=== PATIENT | male | born 1975 | race Caucasian/White ===

== ENCOUNTER 2017-04-14 13:05 | Emergency (ER) | payer SELFPAY ==
[~2017-04-14] VITALS: Ht 190.5 cm; Wt 80.0 kg
[2017-04-14 13:12] VITALS: TEMP 37.1; Ht 190.5 cm; Wt 80.0 kg
--- NOTE | 2017-04-14 13:33 | EMERGENCY ROOM VISIT NOTE ---
History Report prepared by Inesibe: Janneth Brock Under the Supervision of: Dr. Gabriel Hampton M.D. First contact with patient: 13:24 Chief Complaint: CHEST PAIN Stated Complaint: DIZZINESS, CHEST PAIN, BACK PAIN, CANT BREATH Nursing Triage Summary: Pt c/o left sided CP, palpitations, feeling his heartbeat in his throat, excessive tiredness, dizziness, numbness in chin and tongue, & shortness of breath with exertion. Pt verbalizes he was seen for this 1 month ago and was told he has anxiety and vertigo. Medications have not helped, pt says "symptoms are getting worse. Pt verbalizes he had a cardiac cath a few years ago for similar episode and was told everything was normal, dx with GERD. History of Present Illness The patient is a 42 year old male who presents to the Emergency Room with complaints of intermittent left sided chest pain. He also complains of palpitations, fatigue, dizziness, numbness in his chin and tongue and shortness of breath with exertion. He reports he was worked up for similar symptoms approximately 1 month ago but nothing abnormal was found. He was given Ativan for anxiety, but states it does not help. Since, then he reports his dizziness and other symptoms have been worsening. The patient admits he does not have a primary care provider. He denies drinking alcohol or any history of liver problems. He has not experienced any leg swelling, diarrhea, rashes or urinary symptoms. He denies any personal or family history of blood clots. He states he underwent a cardiac catheterization a few years ago and was told it was normal. The patient is a current smoker and admits he has been smoking "for a long time ". He has never undergone surgery on his chest or abdomen. 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 A total of 10 systems reviewed and were otherwise negative. Past Medical & Surgical Medical Problems: (1) Anxiety (2) GERD (gastroesophageal reflux disease) Social History Smoking Status: Current Every Day Smoker Alcohol Use: none Drug Use: none Marital Status: Housing Status: lives with family Occupation Status: unemployed Current/Historical Medications Scheduled Doxycycline Hyclate (Vibramycin), 100 MG PO BID Prednisone (Prednisone), 0 PO DAILY Allergies Coded Allergies: No Known Allergies (Unverified , 04/14/17) Physical Exam Vital Signs Date Time Temp Pulse Resp B/P (MAP) Pulse Ox O2 Delivery O2 Flow Rate FiO2 04/14/17 14:39 71 20 121/75 95 Room Air 04/14/17 13:12 96 Room Air 04/14/17 13:12 37.1 83 18 128/77 95 Room Air Physical Exam GENERAL: Patient is anxious appearing and in no acute distress. HEENT: No acute trauma, normocephalic atraumatic, mucous membranes moist, no nasal congestion, no scleral icterus. NECK: No stridor, no adenopathy, no meningismus, trachea is midline. LUNGS: No dyspnea. Clear to auscultation and equal bilaterally. No wheeze, no rhonchi. HEART: Regular rate and rhythm. No murmurs, rubs, gallops appreciated. ABDOMEN: Soft, nontender, bowel sounds positive, no masses appreciated, no peritonitis. BACK: No midline tenderness, no CVA tenderness EXTREMITIES: Normal motion all extremities, no cyanosis, no edema. NEUROLOGIC: Alert and oriented, no acute motor or sensory deficits, no focal weakness, cranial nerves grossly intact. SKIN: Skin is heavily tattooed. No rash, no jaundice, no diaphoresis. Medical Decision & Procedures ER Provider Diagnostic Interpretation: Radiology results and stated below per my review and radiologist interpretation: CHEST ONE VIEW PORTABLE HISTORY: 42 years-old Male left chest pain x 1 month acute left-sided atypical chest pain COMPARISON: None available TECHNIQUE: Portable AP view of the chest FINDINGS: The cardiomediastinal and hilar silhouettes are within normal limits. Atherosclerosis of the aorta. There is no pneumothorax, pleural effusion, focal airspace consolidation or overt pulmonary edema. Scattered nodular opacities measuring up to 5 mm suggests calcified granulomas. Correlate with any prior imaging. Bones of the chest appear grossly intact. Bones of the chest appear grossly intact. IMPRESSION: No acute process of the chest. The above report was generated using voice recognition software. It may contain grammatical, syntax or spelling errors. Electronically signed by: Hilton Paniagua M.D. 04/14/2017 2:01 PM Laboratory Results 04/14/17 13:40 Red Blood Count 5.66, Mean Corpuscular Volume 91.9, Mean Corpuscular Hemoglobin 32.2, Mean Corpuscular Hemoglobin Concent 35.0, Mean Platelet Volume 11.0, Neutrophils (%) (Auto) 71.8, Lymphocytes (%) (Auto) 18.3, Monocytes (%) (Auto) 6.7, Eosinophils (%) (Auto) 2.6, Basophils (%) (Auto) 0.3, Neutrophils # (Auto) 8.16, Lymphocytes # (Auto) 2.07, Monocytes # (Auto) 0.76, Eosinophils # (Auto) 0.29, Basophils # (Auto) 0.03 04/14/17 13:40 Test 04/14/17 13:40 White Blood Count 11.34 K/uL (4.8-10.8) Red Blood Count 5.66 M/uL (4.7-6.1) Hemoglobin 18.2 g/dL (14.0-18.0) Hematocrit 52.0 % (42-52) Mean Corpuscular Volume 91.9 fL (80-100) Mean Corpuscular Hemoglobin 32.2 pg (25-34) Mean Corpuscular Hemoglobin Concent 35.0 g/dl (32-36) Platelet Count 229 K/uL (130-400) Mean Platelet Volume 11.0 fL (7.4-10.4) Neutrophils (%) (Auto) 71.8 % Lymphocytes (%) (Auto) 18.3 % Monocytes (%) (Auto) 6.7 % Eosinophils (%) (Auto) 2.6 % Basophils (%) (Auto) 0.3 % Neutrophils # (Auto) 8.16 K/uL (1.4-6.5) Lymphocytes # (Auto) 2.07 K/uL (1.2-3.4) Monocytes # (Auto) 0.76 K/uL (0.11-0.59) Eosinophils # (Auto) 0.29 K/uL (0-0.5) Basophils # (Auto) 0.03 K/uL (0-0.2) RDW Standard Deviation 42.8 fL (36.4-46.3) RDW Coefficient of Variation 12.8 % (11.5-14.5) Immature Granulocyte % (Auto) 0.3 % Immature Granulocyte # (Auto) 0.03 K/uL (0.00-0.02) D-Dimer 190 ug/L FEU (0-500) Anion Gap 4.0 mmol/L (3-11) Est Creatinine Clear Calc Drug Dose 113.5 ml/min Estimated GFR () 113.8 Estimated GFR (Non- 98.2 BUN/Creatinine Ratio 15.3 (10-20) Calcium Level 8.9 mg/dl (8.5-10.1) Troponin I < 0.015 ng/ml (0-0.045) C-Reactive Protein < 0.29 mg/dl (0-0.29) Thyroid Stimulating Hormone (TSH) 2.790 uIu/ml (0.300-4.500) Laboratory results as reviewed by me. Medications Administered Medications (Trade) Dose Ordered Sig/Yudy Route Start Time Stop Time Status Last Admin Dose Admin Prednisone (PredniSONE TAB) 60 mg NOW STAT PO 04/14/17 14:53 04/14/17 14:54 DC 04/14/17 15:03 60 MG ECG Indication: chest pain Rate (beats per minute): 77 Rhythm: normal sinus Findings: no acute ischemic change, no ectopy ED Course 1325: The patient was evaluated in room B11. A complete history and physical exam was performed. 1445: I reevaluated the patient. We discussed at length his findings being normal and his extensive previous workups. We discussed no clear indication for antibiotics or other medications. Through informed decision making, we will try Prednisone first. He also requests a prescription for Doxycycline in case he decides to get that filled. 1453: Prednisone 60 mg PO. Medical Decision 42 yr old male with wide variety of complaints which have been ongoing for the last 1+ month. Already extensive work up for this including MRIs, CTs, echos, and admission to OSH. No specific cause thus yet identified. Symptoms are not classical for ACS and with unremarkable EKG, neg Trop I do not feel this is ACS. CXR unremarkable. Dimer negative and without PE risk factors I feel CT not indicated. Symptoms not consistent with dissection. He has no neuro deficits on exam, already had neg MRI brain and thus I do not feel repeat MRI indicated. He does have variety of muscle/joint aches/pains but with neg CRP seems unlikely inflammatory, as well as already having negative lyme previously. That said this is now ongoing for the last month without any improvement and patient is to point where he wants to try anything. Thus after shared decision making he wishes to try prednisone round (stressed increase Omeprazole to BID x 1 wk), and will give Rx Doxy in case atypical lyme, etc infection though I noted to him I think it has low chance of making better, may be expensive, etc. I made it clear it is very important for him to set up PCP to hep figure this out. We did discuss the possibility this is anxiety issues, especially given erick-oral tingling when symptoms are worse. I made it clear he may return at any time if worsening or other concerns. Medication Reconcilliation Current Medication List: was personally reviewed by me Blood Pressure Screening Patient's blood pressure: Normal blood pressure Blood pressure disposition: Did not require urgent referral Impression Primary Impression: Left sided chest pain Additional Impressions: Polymyalgia Tingling of face Scribe Attestation The scribe's documentation has been prepared under my direction and personally reviewed by me in its entirety. I confirm that the note above accurately reflects all work, treatment, procedures, and medical decision making performed by me. Departure Information Dispostion Home / Self-Care Prescriptions Doxycycline Hyclate (VIBRAMYCIN) 100 Mg Cap 100 MG PO BID for 14 Days, #28 CAP Prov: Gabriel Hampton M.D. 04/14/17 Prednisone (Prednisone) 20 Mg Tab 0 PO DAILY, #18 TAB 3 DAILY FOR 3 DAYS, THEN 2 DAILY FOR 3 DAYS, THEN 1 DAILY FOR 3 DAYS. Prov: Gabriel Hampton M.D. 04/14/17 Patient Instructions My [facility] Additional Instructions You have been examined and treated today on an emergency basis only. This is not a substitute for, or an effort to provide, complete comprehensive medical care. It is impossible to recognize and treat all injuries or illnesses in a single emergency department visit. It is therefore important that you follow up closely with your Primary Physician. Call as soon as possible for an appointment so you can review all labs, imaging and other testing that you had. Return to Emergency Department, call 911 or seek immediate medical attention if you feel your symptoms are worsening. Problem Qualifiers
[2017-04-14 13:50] LABS: BASO % 0.3 %; BASO ABS # 0.03 K/uL (0-0.2); EOS % 2.6 %; EOS ABS # 0.29 K/uL (0-0.5); HEMOGLOBIN 18.2 g/dL (14.0-18.0); IG# 0.03 K/uL (0.00-0.02); LYMPH % 18.3 %; LYMPH ABS # 2.07 K/uL (1.2-3.4); MEAN CELL VOLUME 91.9 fL (80-100); MEAN CORPUSCULAR HEMOGLOBIN 32.2 pg (25-34); MONO % 6.7 %; MONO ABS # 0.76 K/uL (0.11-0.59); NEUT % 71.8 %; NEUT ABS # 8.16 K/uL (1.4-6.5); PLATELET COUNT 229 K/uL (130-400); RED CELL DISTRIBUTION WIDTH CV 12.8 % (11.5-14.5); RED CELL DISTRIBUTION WIDTH SD 42.8 fL (36.4-46.3); WHITE BLOOD COUNT 11.34 K/uL (4.8-10.8)
--- NOTE | 2017-04-14 14:02 | DIAGNOSTIC IMAGING REPORT ---
CHEST ONE VIEW PORTABLE HISTORY: 42 years-old Male left chest pain x 1 month acute left-sided atypical chest pain COMPARISON: None available TECHNIQUE: Portable AP view of the chest FINDINGS: The cardiomediastinal and hilar silhouettes are within normal limits. Atherosclerosis of the aorta. There is no pneumothorax, pleural effusion, focal airspace consolidation or overt pulmonary edema. Scattered nodular opacities measuring up to 5 mm suggests calcified granulomas. Correlate with any prior imaging. Bones of the chest appear grossly intact. Bones of the chest appear grossly intact. IMPRESSION: No acute process of the chest. The above report was generated using voice recognition software. It may contain grammatical, syntax or spelling errors. Electronically signed by: Hilton Paniagua M.D. 04/14/2017 2:01 PM Dictated Date/Time: 04/14/2017 1:59 PM
[2017-04-14 14:08] LABS: BLOOD UREA NITROGEN 14 mg/dl (7-18); CALCIUM 8.9 mg/dl (8.5-10.1); CARBON DIOXIDE 30 mmol/L (21-32); CREATININE 0.94 mg/dl (0.60-1.40); GLUCOSE 91 mg/dl (70-99); POTASSIUM 4.1 mmol/L (3.5-5.1); SODIUM 137 mmol/L (136-145)
[2017-04-14 14:39] VITALS: BP 121/75; PULSE 71; O2SAT 95
[2017-04-14] MEDS ORDERED: DOXY100C PO (14:55)
[2017-04-14] MEDS ORDERED: PRED20TA PO (14:55)
== END 2017-04-14 15:05 | disposition home or self-care (01) ==
LOC: C.EDB 13:08
DX: R07.9 Chest pain, unspecified (principal); M35.3 Polymyalgia rheumatica; R20.2 Paresthesia of skin; F41.9 Anxiety disorder, unspecified; K21.9 Gastro-esophageal reflux disease without esophagitis; F17.210 Nicotine dependence, cigarettes, uncomplicated